=== PATIENT | female | born 1955 | race Caucasian/White ===

== ENCOUNTER 2021-01-21 11:33 | Emergency (ER) | payer MEDICARE, SELFPAY ==
[2021-01-21] VITALS (10 sets, daily range): BP systolic 115–147; BP diastolic 62–112; PULSE 67–85; RESP 16–19; TEMP 36.6; O2SAT 97–100
--- NOTE | ~2021-01-21 | XR_ITS ---
EXAMINATION: XR chest 1V portable DATE: 01/21/2021 12:07 INDICATION: Chest pain TECHNIQUE: frontal view of the chest was obtained. COMPARISON: None FINDINGS: Small calcified nodule at the left upper lung zone consistent with old granulomatous disease. No othe r airspace opacities, pulmonary edema, pleural effusion or pneumothorax. The cardiomediastinal silhou ette is normal. Mild to moderate thoracic spondylosis. IMPRESSION: 1. No acute cardiopulmonary disease. Reviewed, dictated and finalized at location A.
--- NOTE | ~2021-01-21 | CT_ITS ---
EXAMINATION: CT abdomen pelvis w con DATE: 01/21/2021 13:11 INDICATION: Epigastric pain for 3 weeks TECHNIQUE: Computed tomography (CT) of the abdomen and pelvis was performed with 100 cc Omnipaque 350 intravenous contrast. The dose-length product was 601.03 mGy-cm. Automated exposure control and iter ative reconstruction technique were employed. COMPARISON: None. FINDINGS: Lung bases are unremarkable. Heart size normal. No significant pleural or pericardial effus ion. There are low-density lesions in the liver, most likely benign cysts, largest measuring 13 mm. There are calcified granulomas in the spleen. The pancreas, adrenal glands are unremarkable. There is a sma ll subcentimeter hypodensity of the left kidney, most likely benign. No significant hydronephrosis. T iny fat-containing umbilical hernia. Nonobstructive bowel gas pattern. Colonic diverticulosis without evidence for diverticulitis. Normal appendix. Mild thickening of the gastric wall, suspicious for ga stritis. No free air or free fluid. The gallbladder is present. Moderate lumbar spondylosis. IMPRESSION: 1. Mild thickening of the gastric wall, suspicious for gastritis. Reviewed, dictated and finalized at location A.
--- NOTE | 2021-01-21 11:44 | ECG_ITS ---
Measurements Intervals [place] Rate: 82 P: 68 WV: 164 QRS: 69 QRSD: 84 T: 21 QT: 337 QTc: 395 Interpretive Statements SINUS RHYTHM MINIMAL Q WAVES- DIFFUSE LEADS NONSPECIFIC ST & T-WAVE ABNORMALITY- ANTEROLAT/INF LEADS BORDERLINE ECG Electronically Signed On 01-21-2021 11:46:59 CDT by Dangelo Thomas D.O.
--- NOTE | 2021-01-21 11:59 | ED.ARRPALP ---
HPI - Arrhythmia/Palpitations General Chief Complaint: Arrhythmia/Palpitations Stated Complaint: Chest Fluttering Time Seen by Provider: 01/21/21 11:42 Source: patient Mode of arrival: ambulatory Limitations: no limitations History of Present Illness HPI narrative: Patient is 65 years old white female presents with constant quivering and fluttering-like feeling retrosternal and epigastric area since last night. Patient reports the symptoms been going off and on for the last 4 weeks, became constant last night until 6 AM. Currently patient is asymptomatic. Patient denies any fever, chills, nausea, vomiting, chest pain, shortness of breath. Patient been vaccinated for COVID-19 months ago. Patient does not take any medicine at home except some water pills. Patient does not smoke or drink or uses drugs. Patient came from [place] to visit her relative 10 days ago. And would like to go back home. She denies any stress. Related Data Home Medications Medication Instructions Recorded Confirmed bimatoprost [Lumigan] 1 drp EACH EYE DAILY 01/21/21 bimatoprost [Lumigan] drp DAILY 01/21/21 buspirone 7.5 mg PO BID 01/21/21 gabapentin 100 mg PO TID 01/21/21 hydrochlorothiazide 25 mg PO DAILY 01/21/21 mirabegron [Myrbetriq] 50 mg PO DAILY 01/21/21 omeprazole PO DAILY 01/21/21 Allergies Allergy/AdvReac Type Severity Reaction Status Date / Time No Known Allergies Allergy Verified 01/21/21 11:48 Review of Systems Review of Systems: Narrative: CONSTITUTIONAL: Denies fever, chills, or sweats. EYES: Denies visual changes, redness, or discharge. ENT: Denies rhinorrhea, congestion, sore throat, or otalgia. CARDIOVASCULAR: Denies chest pain, palpitations, or edema. RESPIRATORY: Denies cough or dyspnea. GASTROINTESTINAL: Denies abdominal pain, nausea, vomiting, or diarrhea. GENITOURINARY: Denies dysuria or hematuria. SKIN: Denies rash or itching. MUSCULOSKELETAL: Denies back pain, joint pain, or myalgia. NEUROLOGIC: Denies headache, numbness, or weakness. PSYCHIATRIC: Denies anxiety or depression. [facility] Social History Social History Gender identity (if verbalized by the patient): Female Exam Narrative: Exam Narrative: General appearance: Well-developed, well-nourished Skin: Normal color Head: Normocephalic, nontraumatic Eyes: Clear conjunctiva ENT: Oropharynx normal, ears normal, nose normal Neck: Supple, nontender Chest and respiratory: Airway patent, no respiratory distress, no accessory muscle use Heart: Regular rate/rhythm Abdomen: Soft, slight tenderness epigastric area, no organomegaly, quiet bowel sounds Vascular: Normal peripheral pulses, normal capillary refill. Musculoskeletal: Normal range of motion, nontender back Neurologic: Alert and oriented ?3, SUPERVISOR WOUND is normal as tested, no gross motor deficit Course Course Emergency Course: Improved Reevaluation(s) Reevaluation #1: Patient is still asymptomatic, feeling good and ready to go home. Patient on omeprazole 20 mg once a day Date: 01/21/21 Time: 14:37 Vital Signs Vital signs: Vital Signs Temperature 36.6 C 01/21/21 11:40 Pulse Rate 82 01/21/21 11:40 Respiratory Rate 18 01/21/21 11:40 Blood Pressure 147/89 H 01/21/21 11:40 Pulse Oximetry 100 01/21/21 11:40 Temperature 36.6 C 01/21/21 11:40 Pulse Rate 67 01/21/21 13:45 Respiratory Rate 17 01/21/21 13:45 Blood Pressure 119/70 01/21/21 13:45 Pulse Oximetry 100 01/21/21 13:45 MDM - Arrhythmia/Palpitations MDM Narrative Medical decision making narrative: Coronary, fluttering feeling retrosternal. Cardiac arrhythmia, stress related symptoms is m
[2021-01-21 12:16] LABS: Basophils Percent Auto 0.7 % (0.2-1.2); Eosinophils Percent Auto 0.7 % (0-4.4); Hematocrit 43.6 % (37.0-47.0); Hemoglobin 13.5 g/dL (12.0-15.0); Immature Granulocyte Absolute 0.01 K/mm3 (0.00-0.031); Immature Granulocyte Percent A 0.2 % (0-0.5); Lymphocytes Absolute Auto 1.66 K/mm3 (0.9-3.2); Lymphocytes Percent Auto 38.9 % (18.3-44.2); Mean Corpuscular Hemoglobin 27.4 pg (26-34); Mean Corpuscular Volume 88.6 fl (80-100); Mean Platelet Volume 9.5 fl (7.4-10.4); Monocytes Absolute Auto 0.4 K/mm3 (0.1-0.6); Monocytes Percent Auto 9.6 % (2.6-8.5); Neutrophils Absolute Auto 2.1 K/mm3 (1.3-6.7); Neutrophils Percent Auto 49.9 % (45.5-73.1); Platelet Count Result 254 k/mm3 (150-375); Red Blood Count 4.92 M/mm3 (4.2-5.4); Red Cell Distribution Width 13.1 % (11.5-14.5); White Blood Count 4.3 K/mm3 (4.5-10.0)
[2021-01-21] MEDS: SODIUM CHLORIDE 0.9% IV 1,000 ML 999 ML IV CONT (12:19)
[2021-01-21 12:26] LABS: Alanine Aminotransferase 21 U/L (4-35); Albumin Level 4.7 g/dL (3.5-5.1); Alkaline Phosphatase 94 U/L (38-126); Anion Gap 10 mmol/L (8-16); Aspartate Amino Transferase 34 U/L (14-36); Bilirubin,Total 0.4 mg/dL (0.2-1.3); Blood Urea Nitrogen 25 mg/dL (7-17); Calcium 10.7 mg/dL (8.4-10.2); Carbon Dioxide 27 mmol/L (22-30); Chloride 106 mmol/L (98-107); Estimated Glomerular Filt Rate 56; Glucose 131 mg/dL (65-105); Lipase 120 U/L (23-300); Potassium 3.8 mmol/L (3.4-5.0); Sodium 143 mmol/L (137-145)
[2021-01-21 12:37] LABS: Troponin I < 0.012 ng/mL (0.000-0.034)
== END 2021-01-21 15:40 | disposition home or self-care (01) ==
PROVIDERS: Emergency Provider Emergency Medicine
DX: R00.2 Palpitations (principal); K29.70 Gastritis, unspecified, without bleeding; R94.31 Abnormal electrocardiogram [ECG] [EKG]
CPT/HCPCS: 36415; 71045; 74177; 80053; 83690; 84443; 84484; 85025; 93005; 96360; 96361; 99284; J7030; Q9967